=== PATIENT | male | born 1980 | race Caucasian/White ===

== ENCOUNTER → 2024-05-02 | Outpatient (REF) | payer OTHER ==
[2024-05-02 18:40] LABS: HEMATOCRIT 50.5 % (42.0-52.0); HEMOGLOBIN 16.7 g/dl (13.5-17.5); MEAN CORPUSCULAR HEMOGLOBIN 29.6 pg (27.0-33.0); MEAN CORPUSCULAR HGB CONC 33.1 g/dl (32.0-36.5); MEAN CORPUSCULAR VOLUME 89.4 fl (80.0-96.0); PLATELET COUNT, AUTOMATED 213 10^3/uL (150-450); RED BLOOD COUNT 5.65 10^6/uL (4.30-6.10); WHITE BLOOD COUNT 5.8 10^3/uL (4.0-10.0)
[2024-05-02 18:52] LABS: HEMOGLOBIN A1c 5.7 % (4.0-6.0)
[2024-05-02 19:05] LABS: ALBUMIN 4.3 G/DL (3.2-5.2); ALKALINE PHOSPHATASE 96 U/L (40-129); ALT/SGPT 65 U/L (7.0-40); AST/SGOT 21 U/L (<34); BILIRUBIN,TOTAL 0.7 MG/DL (0.3-1.2); BLOOD UREA NITROGEN 22 MG/DL (9-23); CARBON DIOXIDE LEVEL 30 MMOL/L (20-31); CHLORIDE LEVEL 104 MMOL/L (98-107); CHOLESTEROL LEVEL 267 MG/DL (<200); CHOLESTEROL RISK RATIO 5.32 (<5); CREATININE FOR GFR 1.06 MG/DL (0.70-1.30); GLOMERULAR FILTRATION RATE > 60.0 (>60); GLUCOSE, FASTING 92 MG/DL (60-100); HDL CHOLESTEROL 50.1 MG/DL (>40); LDL CHOLESTEROL 189.3 MG/DL (<100); NON-HDL-C 216.9 MG/DL; POTASSIUM SERUM 4.7 MMOL/L (3.5-5.1); SODIUM LEVEL 143 MMOL/L (136-145); THYROID STIMULATING HORMONE 1.603 uIU/ML (0.55-4.78); TRIGLYCERIDES LEVEL 138 MG/DL (<150)
== END ==
LOC: M LAB REF 16:36
PROVIDERS: ATTEND Student in an Organized Health Care Education/Training Program
DX: Z00.00 Encounter for general adult medical examination without abnormal findings (principal)

== ENCOUNTER → 2024-05-03 | Outpatient (REF) | payer OTHER | LOC: M LAB REF 16:30 | PROVIDERS: ATTEND Student in an Organized Health Care Education/Training Program | DX: R53.83 Other fatigue (principal) ==

== ENCOUNTER → 2024-05-07 | Outpatient (REF) | payer OTHER | LOC: M LAB REF 12:30 | PROVIDERS: ATTEND Student in an Organized Health Care Education/Training Program | DX: R53.83 Other fatigue (principal) ==

== ENCOUNTER → 2024-07-02 | Outpatient (REF) | payer OTHER | LOC: M LAB REF 12:21 | PROVIDERS: ATTEND Student in an Organized Health Care Education/Training Program | DX: E29.1 Testicular hypofunction (principal) ==

== ENCOUNTER 2024-07-26 08:12 | Day surgery (SDC) | payer OTHER ==
[~2024-07-26] VITALS: Ht 188 cm; Wt 95.3 kg
[~2024-07-26 08:12] MED LIST: LIDOCAINE 2% 100MG/5ML SDV (FOR ANES.) As Ordered ONE; TEST200I14 IM; propofoL 200 MG/20 ML VIAL As Ordered ONE
[2024-07-26 09:33] VITALS: TEMP 96.7
[2024-07-26 09:55] VITALS: BP 126/78; O2SAT 96
== END 2024-07-26 09:57 | disposition home or self-care (01) ==
LOC: M OPP 08:12
PROVIDERS: ATTEND Surgery
DX: Z12.11 Encounter for screening for malignant neoplasm of colon (principal); Z91.013 Allergy to seafood; Z91.048 Other nonmedicinal substance allergy status; Z79.899 Other long term (current) drug therapy

== ENCOUNTER → 2024-08-02 | Outpatient (REF) | payer OTHER ==
[~2024-08-02] MED LIST changes: -LIDOCAINE 2% 100MG/5ML SDV (FOR ANES.) As Ordered ONE; -propofoL 200 MG/20 ML VIAL As Ordered ONE
[2024-08-02 18:58] LABS: BASO # 0.1 10^3/uL (0.0-0.2); EOS # 0.2 10^3/uL (0.0-0.5); EOS % 2.5 % (0.0-3.0); HEMATOCRIT 52.7 % (42.0-52.0); HEMOGLOBIN 16.9 g/dl (13.5-17.5); LYMPH # 1.5 10^3/uL (1.5-5.0); LYMPH % 21.4 % (24.0-44.0); MEAN CORPUSCULAR HEMOGLOBIN 30.8 pg (27.0-33.0); MEAN CORPUSCULAR HGB CONC 32.1 g/dl (32.0-36.5); MEAN CORPUSCULAR VOLUME 96.2 fl (80.0-96.0); MONO # 0.4 10^3/uL (0.0-0.8); MONO % 6.4 % (2.0-8.0); NEUTROPHILS # 4.7 10^3/uL (1.5-8.5); NEUTROPHILS % 68.4 % (36.0-66.0); PLATELET COUNT, AUTOMATED 235 10^3/uL (150-450); RED BLOOD COUNT 5.48 10^6/uL (4.30-6.10); WHITE BLOOD COUNT 6.9 10^3/uL (4.0-10.0)
[2024-08-02 19:22] LABS: ALBUMIN 4.3 G/DL (3.2-5.2); BILIRUBIN,TOTAL 1.3 MG/DL (0.3-1.2); CALCIUM LEVEL 9.2 MG/DL (8.5-10.1); CHOLESTEROL RISK RATIO 5.2 (<5); CREATININE FOR GFR 1.09 MG/DL (0.70-1.30); GLOMERULAR FILTRATION RATE 86.4 (>60); HDL CHOLESTEROL 38.6 MG/DL (>40); LDL CHOLESTEROL 125.4 MG/DL (<100); NON-HDL-C 162.4 MG/DL; POTASSIUM SERUM 4.7 MMOL/L (3.5-5.1); PSA SCREENING 1.09 NG/ML (< 4.00); TOTAL PROTEIN 7.4 G/DL (5.7-8.2)
[2024-08-02 19:34] LABS: HEMOGLOBIN A1c 4.4 % (4.0-6.0)
== END ==
LOC: M LAB REF 17:26
PROVIDERS: ATTEND Student in an Organized Health Care Education/Training Program
DX: E29.1 Testicular hypofunction (principal); E78.5 Hyperlipidemia, unspecified; R74.01 Elevation of levels of liver transaminase levels
CPT/HCPCS: 80053; 80061; 83036; 84403; 85025; G0103

== ENCOUNTER → 2024-12-27 | Outpatient (REF) | payer OTHER ==
[2024-12-27 15:12] LABS: BASO # 0.1 10^3/uL (0.0-0.2); BASO % 1.1 % (0.0-1.0); EOS # 0.1 10^3/uL (0.0-0.5); EOS % 1.4 % (0.0-3.0); LYMPH # 1.1 10^3/uL (1.5-5.0); LYMPH % 17.6 % (24.0-44.0); MONO # 0.5 10^3/uL (0.0-0.8); MONO % 7.5 % (2.0-8.0); NEUTROPHILS # 4.5 10^3/uL (1.5-8.5); NEUTROPHILS % 72.2 % (36.0-66.0); PLATELET COUNT, AUTOMATED 242 10^3/uL (150-450)
[2024-12-27 15:16] LABS: CHOLESTEROL LEVEL 225.0 MG/DL (<200); CHOLESTEROL RISK RATIO 5.01 (<5); LDL CHOLESTEROL 149.1 MG/DL (<100); NON-HDL-C 180.1 MG/DL; TRIGLYCERIDES LEVEL 155.0 MG/DL (<150)
== END ==
LOC: M LAB REF 14:20
PROVIDERS: ATTEND Student in an Organized Health Care Education/Training Program
DX: E78.5 Hyperlipidemia, unspecified (principal); E29.1 Testicular hypofunction

== ENCOUNTER 2025-01-12 16:41 | Inpatient (IN) | payer OTHER ==
[~2025-01-12] VITALS: Ht 188 cm; Wt 98.6 kg
[2025-01-12] MEDS ORDERED: CICL0.7739 TOP (16:49)
[2025-01-12] MEDS ORDERED: AMLO1TAB24 PO (16:49)
[2025-01-12 17:59] LABS: BASO # 0.1 10^3/uL (0.0-0.2); BASO % 0.9 % (0.0-1.0); EOS # 0.1 10^3/uL (0.0-0.5); EOS % 1.0 % (0.0-3.0); LYMPH # 1.2 10^3/uL (1.5-5.0); LYMPH % 12.2 % (24.0-44.0); MONO # 0.6 10^3/uL (0.0-0.8); MONO % 5.6 % (2.0-8.0); NEUTROPHILS # 8.2 10^3/uL (1.5-8.5); NEUTROPHILS % 80.1 % (36.0-66.0); PLATELET COUNT, AUTOMATED 244 10^3/uL (150-450)
[2025-01-12] MEDS: ONDANSETRON 4MG 2ML VIAL IV ONE (18:02)
[2025-01-12] MEDS: MORPHINE 4 MG/ML 1 ML VIAL IV ONE (18:02)
[2025-01-12 18:19] LABS: CALCIUM LEVEL 9.0 MG/DL (8.5-10.1); CARBON DIOXIDE LEVEL 29.0 MMOL/L (20-31); CHLORIDE LEVEL 102.0 MMOL/L (98-107); CREATININE FOR GFR 1.27 MG/DL (0.70-1.30); GLOMERULAR FILTRATION RATE 71.9 (>60); POTASSIUM SERUM 4.1 MMOL/L (3.5-5.1); SODIUM LEVEL 137.0 MMOL/L (136-145)
[2025-01-12] MEDS ORDERED: HOME MED LIST COMPLETE! XX SCH (18:40)
[2025-01-12] MEDS ORDERED: MIRALAX *UNIT DOSE* 17 GM PACKET PO PRN (21:25)
[2025-01-12] MEDS ORDERED: SENNA 8.6 MG TAB PO PRN (21:25)
[2025-01-12] MEDS ORDERED: MAALOX 30 ML SUSP *UDC PO PRN (21:30)
[2025-01-12] MEDS ORDERED: MOM 30 ML SUSPENSION UDC PO PRN (21:30)
[2025-01-12] MEDS ORDERED: PILL CUTTER 1 EACH XX PRN (21:40)
[2025-01-12 21:49] LABS: ALT/SGPT 59.0 U/L (7.0-40); AST/SGOT 24.0 U/L (<34)
[2025-01-12] MEDS: ACETAMINOPHEN 500 MG TAB PO SCH (22:00)
[2025-01-12] MEDS: MORPHINE 4 MG/ML 1 ML VIAL IV PRN (23:34)
[2025-01-13 07:20] LABS: PLATELET COUNT, AUTOMATED 209 10^3/uL (150-450)
[2025-01-13 07:50] LABS: CALCIUM LEVEL 8.7 MG/DL (8.5-10.1); CARBON DIOXIDE LEVEL 32.0 MMOL/L (20-31); CHLORIDE LEVEL 103.0 MMOL/L (98-107); CREATININE FOR GFR 1.25 MG/DL (0.70-1.30); GLOMERULAR FILTRATION RATE 73.3 (>60); POTASSIUM SERUM 4.2 MMOL/L (3.5-5.1); SODIUM LEVEL 138.0 MMOL/L (136-145)
[2025-01-13] MEDS: HEPARIN SOD 5000 UNITS/ML 1 ML VIAL/SYRINGE SC SCH (08:10)
[2025-01-13 08:20] VITALS: BP 140/93
[2025-01-13] MEDS: amLODIPine 5 MG TAB PO SCH (08:20)
[2025-01-13 08:45] VITALS: BP 143/79; TEMP 98.5; O2SAT 97
[2025-01-13] MEDS: IBUPROFEN 400 MG TAB PO PRN (08:58)
[2025-01-13 11:26] VITALS: BP 142/84; TEMP 98.1; O2SAT 98
[2025-01-13] MEDS ORDERED: LIDOCAINE 2% 100 MG/5 ML SDV (FOR ANES.) As Ordered ONE (11:36)
[2025-01-13] MEDS: MIDAZOLAM INJ 2 MG/2 ML VIAL IV PRN (12:02)
[2025-01-13] MEDS: ROPIvacaine 0.5% 30ML VIAL PN ONE (12:05)
[2025-01-13] MEDS: dexAMETHasone 10 MG/1 ML VIAL PRES.FREE PN ONE (12:05)
[2025-01-13] MEDS ORDERED: ONDANSETRON 4MG 2ML VIAL As Ordered ONE (12:26)
[2025-01-13] MEDS ORDERED: dexAMETHasone 4 MG/ML 1 ML VIAL As Ordered ONE (12:33)
[2025-01-13] MEDS: TRANEXAMIC ACID 100 MG/ML 10ML VIAL As Ordered ONE (12:40)
[2025-01-13] MEDS ORDERED: HYDROMORPHONE HCL 0.5 MG/0.5 ML SYRINGE IV PRN (14:45)
[2025-01-13] MEDS ORDERED: ONDANSETRON 4MG 2ML VIAL IV PRN (14:45)
[2025-01-13 14:57] VITALS: BP 152/93; TEMP 98.3; O2SAT 97
[2025-01-13 15:27] VITALS: BP 165/93; TEMP 98.4; O2SAT 96
[2025-01-13 15:49] VITALS: BP 140/80; TEMP 98.3; O2SAT 98
[2025-01-13] MEDS ORDERED: SENN-186 PO (15:49)
[2025-01-13] MEDS ORDERED: ASPI81CH33 PO (15:49)
[2025-01-13] MEDS ORDERED: OXYC-517 PO (15:49)
[2025-01-13] MEDS ORDERED: ceFAZolin SODIUM 2 GM in DEXTROSE 5% (D5W) ADV/MINI-BAG 50 ML IV SCH (21:00)
== END 2025-01-13 17:10 | disposition home or self-care (01) | DRG 313 ==
LOC: M ED 16:41 → M ED INP 21:30 → M PED 01-13 09:00
PROVIDERS: ADMIT Student in an Organized Health Care Education/Training Program; ATTEND Student in an Organized Health Care Education/Training Program
PROC: 0QSK06Z Reposition Left Fibula with Intramedullary Internal Fixation Device, Open Approach (ICD-10-PCS; principal; 2025-01-13 11:30)
DX: S82.855A Nondisplaced trimalleolar fracture of left lower leg, initial encounter for closed fracture (principal); I12.9 Hypertensive chronic kidney disease with stage 1 through stage 4 chronic kidney disease, or unspecified chronic kidney disease; W19.XXXA Unspecified fall, initial encounter; Y92.009 Unspecified place in unspecified non-institutional (private) residence as the place of occurrence of the external cause; Z87.891 Personal history of nicotine dependence; N18.2 Chronic kidney disease, stage 2 (mild); R74.01 Elevation of levels of liver transaminase levels; Z79.899 Other long term (current) drug therapy; Z91.013 Allergy to seafood

== ENCOUNTER → 2025-03-06 | Outpatient (CLI) | payer OTHER ==
[~2025-03-06] MED LIST changes: +AMLO1TAB24 PO; +ASPI81CH33 PO; +CICL0.7739 TOP; +OXYC-517 PO; +SENN-186 PO
== END ==
LOC: M SOG 07:38
PROVIDERS: ATTEND Physician Assistant
DX: S82.852D Displaced trimalleolar fracture of left lower leg, subsequent encounter for closed fracture with routine healing (principal)

== ENCOUNTER → 2025-03-07 | Outpatient (REF) | payer OTHER ==
[2025-03-07 15:30] LABS: ALT/SGPT 43.0 U/L (7.0-40); AST/SGOT 19.0 U/L (<34); CALCIUM LEVEL 9.8 MG/DL (8.5-10.1); CARBON DIOXIDE LEVEL 30.0 MMOL/L (20-31); CHLORIDE LEVEL 101.0 MMOL/L (98-107); CHOLESTEROL LEVEL 230.0 MG/DL (<200); CHOLESTEROL RISK RATIO 4.77 (<5); CREATININE FOR GFR 1.23 MG/DL (0.70-1.30); GLOMERULAR FILTRATION RATE 74.7 (>60); LDL CHOLESTEROL 152.4 MG/DL (<100); NON-HDL-C 181.8 MG/DL; PLATELET COUNT, AUTOMATED 258 10^3/uL (150-450); POTASSIUM SERUM 4.4 MMOL/L (3.5-5.1); SODIUM LEVEL 141.0 MMOL/L (136-145); TRIGLYCERIDES LEVEL 147.0 MG/DL (<150)
[2025-03-07 15:37] LABS: ESTIMATED AVERAGE GLUCOSE 108.0 MG/DL (60-110)
== END ==
LOC: M LAB REF 12:18
PROVIDERS: ATTEND Family Medicine Addiction Medicine
DX: R73.03 Prediabetes (principal)

== ENCOUNTER → 2025-04-24 | Outpatient (CLI) | payer OTHER | LOC: M SOG 07:38 | PROVIDERS: ATTEND Physician Assistant | DX: S82.852D Displaced trimalleolar fracture of left lower leg, subsequent encounter for closed fracture with routine healing (principal); Y93.9 Activity, unspecified; Y92.9 Unspecified place or not applicable ==